=== PATIENT | female | born 1985 | race African-American/Black ===

== ENCOUNTER 2023-02-17 06:08 | Emergency (ER) | payer MEDICAID ==
[~2023-02-17] VITALS: Ht 167.6 cm; Wt 70.0 kg
[2023-02-17 06:17] VITALS: BP 118/70; O2SAT 100
[2023-02-17] MEDS ORDERED: IBUP-2028 MT (08:44)
[2023-02-17] MEDS ORDERED: CLIN-194 MT (08:44)
[2023-02-17] MEDS ORDERED: P20 MT (08:44)
[2023-02-17 08:50] VITALS: PULSE 68; RESP 18; TEMP 98.6
== END 2023-02-17 08:51 | disposition home or self-care (01) ==
LOC: ER 06:08
DX: J02.9 Acute pharyngitis, unspecified (principal); Z88.0 Allergy status to penicillin
CPT/HCPCS: 81025; 99283

== ENCOUNTER 2024-05-19 06:48 | Emergency (ER) | payer MEDICAID ==
[~2024-05-19] VITALS: Ht 170.2 cm; Wt 77.0 kg
[~2024-05-19 06:48] MED LIST: CLIN-194 MT; IBUP-2028 MT; P20 MT
[2024-05-19 07:02] VITALS: O2SAT 98
[2024-05-19 08:05] LABS: HEMATOCRIT. 46.5 % (36.0-48.0); MEAN CORPUSCULAR HEMOGLOBIN 31.7 pg (28.0-32.0); MEAN CORPUSCULAR HGB CONC 34.3 g/dL (31.0-37.0); MEAN CORPUSCULAR VOLUME 92.3 fL (81.0-99.0); MEAN PLATELET VOLUME 7.1 fl (7.4-10.4); PLATELET 369 x1000/uL (130-400); RED BLOOD CELL COUNT 5.04 mill/uL (4.2-5.4); RED CELL DISTRIBUTION WIDTH 13.1 % (11.6-14.6); WHITE BLOOD COUNT 3.5 x1000/uL (4.5-11.0)
[2024-05-19 08:08] LABS: DIFFERENTIAL COMMENT 1
[2024-05-19 08:11] LABS: CHLORIDE 108 mEq/L (98-107); POTASSIUM 4.2 mEq/L (3.5-5.1); SODIUM 144 mEq/L (136-145)
[2024-05-19 08:12] LABS: CALCIUM 9.3 mg/dL (8.7-10.4); CARBON DIOXIDE 29 mEq/L (21-32)
[2024-05-19 08:17] LABS: CREATININE 0.9 mg/dL (0.6-1.0); GLUCOSE 97 mg/dL (70-105); UREA NITROGEN BLOOD 14 mg/dL (9-23)
[2024-05-19 08:20] LABS: TROPONIN I HIGH SENSITIVITY < 4 ng/L (3.0-34)
[2024-05-19 09:15] LABS: PLATELET ESTIMATE NORMAL
[2024-05-19] MEDS ORDERED: AZIT250T12 MT (10:09)
[2024-05-19] MEDS ORDERED: IBUP-1523 MT (10:09)
[2024-05-19] MEDS ORDERED: TOPUD MT (10:09)
[2024-05-19] MEDS ORDERED: DEXT30SU17 MT (10:09)
[2024-05-19 10:29] VITALS: BP 131/86; PULSE 93; RESP 21; TEMP 37.1; O2SAT 98
== END 2024-05-19 10:33 | disposition home or self-care (01) ==
LOC: ER 06:59
DX: J20.9 Acute bronchitis, unspecified (principal); Z79.52 Long term (current) use of systemic steroids; Z88.0 Allergy status to penicillin
CPT/HCPCS: 36415; 71045; 80048; 84484; 85025; 93005; 99285

== ENCOUNTER 2025-02-22 15:39 | Inpatient (IN) | payer MEDICAID ==
[~2025-02-22] VITALS: Ht 170.2 cm; Wt 81.6 kg
[~2025-02-22 15:39] MED LIST changes: +AZIT250T12 MT; +DEXT30SU17 MT; +IBUP-1523 MT; +TOPUD MT
[2025-02-22 15:54] VITALS: O2SAT 100
[2025-02-22 16:53] LABS: BASOPHILS % 0.2 % (0.0-2.0); EOSINOPHILS % 2.5 % (0.0-5.0); HEMATOCRIT. 34.9 % (36.0-48.0); HEMOGLOBIN. 11.5 g/dL (12.0-16.0); LYMPHOCYTES % 14.2 % (20.0-50.0); MEAN PLATELET VOLUME 6.7 fl (7.4-10.4); MONOCYTES % 11.3 % (2.0-8.0); NEUTROPHILS % 71.8 % (40.0-76.0); PLATELET 380 x1000/uL (130-400); RED BLOOD CELL COUNT 3.80 mill/uL (4.2-5.4); RED CELL DISTRIBUTION WIDTH 13.0 % (11.6-14.6)
[2025-02-22 17:06] LABS: INR 0.9
[2025-02-22 17:14] LABS: CREATININE 0.8 mg/dL (0.6-1.0); UREA NITROGEN BLOOD 10 mg/dL (9-23)
[2025-02-22 17:39] LABS: B-HCG QUANTITATIVE 11612 mIU/mL (<6)
[2025-02-22] MEDS: SODIUM CHLORIDE 0.9% 1,000 ML IV ONE (20:52)
[2025-02-22] MEDS: OXYTOCIN 30 UNITS/500ML NS 500 ML IV ONE (21:55)
[2025-02-22 23:45] VITALS: BP 102/52; PULSE 70; RESP 18; TEMP 36.4; O2SAT 100
[2025-02-23 00:20] VITALS: BP 102/52; PULSE 70; RESP 18; TEMP 36.4736
[2025-02-23 04:00] VITALS: BP 106/48; PULSE 71; RESP 18; TEMP 36.8; O2SAT 99
[2025-02-23] MEDS: ONDANSETRON HCL 4MG/2ML INJ IV PRN ×2 (05:21→16:24)
[2025-02-23] MEDS: LACTATED RINGERS 1,000 ML IV SCH (05:22)
[2025-02-23 08:00] VITALS: BP 101/59; PULSE 72; RESP 16; TEMP 36.2; O2SAT 100
[2025-02-23 12:00] VITALS: BP 137/59; PULSE 69; RESP 18; TEMP 36.4; O2SAT 98
[2025-02-23] MEDS ORDERED: HYDROMORPHONE HCL/PF 1MG/ML INJ IV PRN ×2 (12:45→15:00)
[2025-02-23] MEDS ORDERED: ONDANSETRON HCL 4MG/2ML INJ IV PRN (12:45)
[2025-02-23] MEDS ORDERED: FAMOTIDINE 20MG/2ML VIAL IV ONE (15:05)
[2025-02-23] MEDS ORDERED: ACETAMINOPHEN 1000MG/100ML 100 ML IV ONE (15:05)
[2025-02-23] MEDS ORDERED: CLINDAMYCIN 900MG PREMIX 50 ML IV ONE (15:32)
[2025-02-23] MEDS ORDERED: METR-167 MT (15:45)
[2025-02-23] MEDS ORDERED: IBUP-2030 MT (15:45)
[2025-02-23] MEDS: DIPHENHYDRAMINE 50MG/ML VIAL IV SCH (16:19)
[2025-02-23 20:00] VITALS: BP 111/59; PULSE 83; RESP 20; TEMP 36.6; O2SAT 98
[2025-02-23 21:52] VITALS: BP 111/59; PULSE 83; RESP 20; TEMP 97.9
== END 2025-02-23 22:38 | disposition home or self-care (01) | DRG 543 ==
LOC: ER 15:39 → EDBEDREQTM 19:29 → EDBEDREQ 19:29 → ENRESERV 23:09 → 6EST 23:47
PROVIDERS: ADMIT Obstetrics & Gynecology; ATTEND Obstetrics & Gynecology
PROC: 10D17ZZ Extraction of Products of Conception, Retained, Via Natural or Artificial Opening (ICD-10-PCS; principal; 2025-02-23)
DX: O03.4 Incomplete spontaneous abortion without complication (principal); Z88.0 Allergy status to penicillin
CPT/HCPCS: 36415; 76801; 80048; 84702; 85025; 86850; 86900; 88305; 93005; 96365; 99291; J1200; J1308; J2405; J3490; J7030; J7120; J0131; J2590